=== PATIENT | male | born 1960 | race Caucasian/White ===

== ENCOUNTER 2017-03-18 16:24 | Emergency (ER) | payer OTHER ==
[2016-01-05 10:15] VITALS: BMI 31.8
[~2017-03-18 16:24] MED LIST: ACETAMINOPHEN500 M1 PO; ASPIRIN81 MG PO; COLACE100 MG PO; CORDARONE200 MG PO; ELIQUIS5 MG PO; HEMOCYTE PLUS C1 CAP PO; HYDROCODONE-APA1 TAB PO; MIRALAX17 GM PO; REQUIP1 MG PO; ZYLOPRIM300 MG
[2017-03-18 17:59] LABS: BASOPHILS 0.3 % (0-2); EOSINOPHILS 2.5 % (0-7); HEMATOCRIT 41.1 % (42.0-54.0); HEMOGLOBIN 14.1 g/dL (13.5-17.5); IMMATURE GRANULOCYTES 0.1 % (0-5); LYMPHOCYTES 41.7 % (15-50); MCH 30.6 pg (26.0-34.0); MCHC 34.3 g/dL (31.0-37.0); MCV 89.2 fL (80.0-100.0); MEAN PLATELET VOLUME 10.1 fL (7.4-10.4); MONOCYTES 10.5 % (2-11); NEUTROPHILS 44.9 % (40-80); RBC 4.61 10x6/uL (4.20-6.10); RDW 13.1 % (11.5-14.5); WBC 7.2 10x3/uL (4.8-10.8)
[2017-03-18 18:01] LABS: PLATELET COUNT 209 10x3/uL (130-400)
[2017-03-18 18:31] LABS: ALBUMIN 3.8 g/dL (3.4-5.0); ALKALINE PHOSPHATASE 114 U/L (46-116); ALT (SGPT) 24 U/L (10-68); BILIRUBIN - TOTAL 0.35 mg/dL (0.2-1.3); CALC OSMOLALITY 281 mosm/kg (275-300); CALCIUM 8.5 mg/dL (8.5-10.1); CARBON DIOXIDE 26.8 mmol/L (21.0-32.0); CHLORIDE - SERUM 107 mmol/L (98-107); CHOL - HDL RATIO 4.3 ratio (2.3-4.9); CHOLESTEROL, TOTAL 132 mg/dL (0-200); CKMB 1.4 U/L (0.0-3.6); CREATINE KINASE 195 UL (21-232); CREATININE - SERUM 1.5 mg/dL (0.6-1.3); GLUCOSE 85 mg/dL (74-106); HDL CHOLESTEROL 31 mg/dL (32-96); LDL CHOLESTEROL 23 mg/dL (0-100); LDL-HDL RATIO 0.7 ratio (1.5-3.5); POTASSIUM - SERUM 4.2 mmol/L (3.5-5.1); PRO BNP 82 pg/mL (0-125); PROTEIN - SERUM 7.4 g/dL (6.4-8.2); SODIUM 141 mmol/L (136-145); TRIGLYCERIDE 392 mg/dL (30-200); UREA NITROGEN 19 mg/dL (7-18); eGFR NON AFRICAN AMERICAN 52 mL/min (90-120)
[2017-03-18 18:34] LABS: TROPONIN-I < 0.017 ng/mL (0.000-0.060)
== END 2017-03-18 19:55 | disposition home or self-care (01) ==
LOC: D.ER 16:24
PROVIDERS: Emergency Medicine
DX: R07.89 Other chest pain (principal); F41.9 Anxiety disorder, unspecified; R00.1 Bradycardia, unspecified

== ENCOUNTER → 2017-03-25 08:38 | Outpatient (CLI) | payer OTHER ==
[2016-01-05 10:15] VITALS: BMI 31.8
== END | disposition home or self-care (01) ==
LOC: D.US 08:38
DX: R10.9 Unspecified abdominal pain (principal); R07.9 Chest pain, unspecified

== ENCOUNTER → 2017-04-12 12:31 | Outpatient (CLI) | payer OTHER ==
[2016-01-05 10:15] VITALS: BMI 31.8
== END | disposition home or self-care (01) ==
LOC: D.NM 12:31
DX: R07.9 Chest pain, unspecified (principal); R11.2 Nausea with vomiting, unspecified; K21.9 Gastro-esophageal reflux disease without esophagitis

== ENCOUNTER → 2017-07-11 09:13 | Outpatient (CLI) | payer OTHER ==
[2016-01-05 10:15] VITALS: BMI 31.8
== END | disposition home or self-care (01) ==
LOC: D.CT 09:13
DX: R10.9 Unspecified abdominal pain (principal)

== ENCOUNTER → 2019-03-11 11:23 | Outpatient (CLI) | payer OTHER ==
[2018-04-12 21:28] VITALS: BMI 32.1
[~2019-03-11 11:23] MED LIST changes: +AMITRIPTYLINE H50 MG PO; +FLOMAX0.4 MG PO; +HYDROCODON-ACE1 EAC7 PO; +REQUIP0.25 MG PO
== END | disposition home or self-care (01) ==
LOC: D.RAD 11:23
PROVIDERS: ATTEND Urology
DX: N20.0 Calculus of kidney (principal)

== ENCOUNTER 2019-03-19 08:47 | Day surgery (SDC) | payer OTHER ==
[~2019-03-19] VITALS: Ht 180.3 cm; Wt 103.9 kg
[~2019-03-19 08:47] MED LIST changes: -AMITRIPTYLINE H50 MG PO; -REQUIP0.25 MG PO
[2019-03-19] MEDS ORDERED: AMITRIPTYLINE H50 MG PO (09:29)
[2019-03-19] MEDS ORDERED: REQUIP0.25 MG PO (09:29)
[2019-03-19 09:36] VITALS: BP 137/88; Ht 180.3 cm; Wt 103.9 kg
[2019-03-19 10:02] LABS: BASOPHILS 0.2 % (0-2); EOSINOPHILS 2.5 % (0-7); HEMATOCRIT 37.6 % (42.0-54.0); HEMOGLOBIN 12.7 g/dL (13.5-17.5); IMMATURE GRANULOCYTES 0.2 % (0-5); LYMPHOCYTES 35.6 % (15-50); MCH 30.6 pg (26.0-34.0); MCHC 33.8 g/dL (31.0-37.0); MCV 90.6 fL (80.0-100.0); MEAN PLATELET VOLUME 9.3 fL (7.4-10.4); MONOCYTES 9.9 % (2-11); NEUTROPHILS 51.6 % (40-80); PLATELET COUNT 179 10x3/uL (130-400); RBC 4.15 10x6/uL (4.20-6.10); RDW 13.2 % (11.5-14.5)
[2019-03-19 10:10] LABS: ANION GAP 10.1 mmol/L (8-16); CALCIUM 8.6 mg/dL (8.5-10.1); CARBON DIOXIDE 29.3 mmol/L (21.0-32.0); CREATININE - SERUM 1.2 mg/dL (0.6-1.3); POTASSIUM - SERUM 4.4 mmol/L (3.5-5.1)
--- NOTE | 2019-03-19 15:59 | OP ---
PATIENT NAME: RYAN DIAZ MEDICAL RECORD: [id number] :64 LOCATION:D[facility] ADMISSION DATE: SURGEON: WARREN ALTAMIRANO MD DATE OF OPERATION: 03/19/2019 SURGEON: Warren Altamirano MD ANESTHESIA: General anesthesia by Michael Gaytan CRNA DIAGNOSIS: History of right 4 mm renal stone. FINDINGS: On fluoroscopy, no radiodense right renal stone was visible. PROCEDURE: Procedure was not done, he had a planned ESWL on the right side. CLINICAL HISTORY: This is a 58-year-old male, who has a CT scan showing a 4 mm stone in the right lower pole of the kidney. He came today to have it treated. He was initially placed on the fluoroscopy table to see if we could see the stone. The model technician thought the stone was visible. Therefore, we proceeded with induction of general anesthesia and giving him 2 grams of Ancef. DESCRIPTION OF PROCEDURE: Once he was asleep in supine position, fluoroscopy was performed and what we thought initially might have been the stone turned out not to be a stone. We could not find any obvious stone candidates. Going down the ureter and down into the bladder, there was no obvious stone candidate. The procedure was therefore terminated. I will see the patient in followup next week with a KUB. TRANSINT:[id number] Voice Confirmation ID: [id number] DOCUMENT ID: [id number] WARREN ALTAMIRANO MD at 1559 CC: [id number] DICTATION DATE: 03/19/19 1255 BENZOL OPERATOR: 03/19/19 1302 [facility] 03/19/19 [place] [id number]
== END 2019-03-19 14:05 | disposition home or self-care (01) ==
LOC: D.OPS 08:47 → D.PAN 11:30 → D.OPS 11:55 → D.PAN 14:30 → D.OPS 14:30
PROVIDERS: Anesthesiology; ATTEND Urology
DX: N20.0 Calculus of kidney (principal)